=== PATIENT | female | born 1960 | race African-American/Black ===

== ENCOUNTER 2018-07-07 10:53 | Emergency (ER) | payer MEDICARE ==
[~2018-07-07] VITALS: Ht 160 cm; Wt 107.5 kg
[2018-07-07 11:25] VITALS: BP 157/83
[2018-07-07] MEDS ORDERED: cefTRIAXone IM 1 GM VIAL IM ONE (12:00)
[2018-07-07] MEDS ORDERED: AMOX1TAB61 PO (12:27)
[2018-07-07] MEDS ORDERED: GUAI118L20 PO (12:27)
[2018-07-07] MEDS ORDERED: ERYT1OIN6 OP (12:27)
--- NOTE | 2018-07-07 12:28 | PHYS DOC ---
Past Medical History Past Medical History: Anxiety, Bronchitis, Fibromyalgia, GERD Additional Past Medical Histor: SEASONAL ALLERGIES, SEROTONIN LOSS Past Surgical History: Other Additional Past Surgical Histo: L KNEE SX, R HEEL SX Alcohol Use: None Drug Use: None Adult General Chief Complaint Chief Complaint: Congestion HPI HPI Patient is a 58 year old female who presents with complaint of upper respiratory symptoms to include cough, congestion, sinus pain and drainage for the last 4 weeks. Patient indicates that symptoms have been progressively worsening. She indicates that she has purulent nasal drainage and complains of headache associated with this. Patient also indicates that she just noticed that left eye was red in this morning left eye was matted shut. She denies any recent trauma. Patient states that her cough is intermittently productive of lightly tinged yellow sputum. She denies any chest pain or shortness of breath. Review of Systems Review of Systems Constitutional: Positive subjective fever[] Eyes: Left eye demonstrates redness and purulent drainage[] HENT: Complains of sinus congestion along with purulent nasal drainage and sore throat [] Respiratory: Complains of cough without shortness of breath [] Cardiovascular: No additional information not addressed in HPI [] Integument: Denies rash or skin lesions [] Neurologic: Denies headache, focal weakness or sensory changes [] Current Medications Current Medications Current Medications Medications (Trade) Dose Ordered Sig/Sekou Start Time Stop Time Status Last Admin Dose Admin Ceftriaxone Sodium (Rocephin Im) 1 gm 1X ONCE 07/07/18 12:00 07/07/18 12:01 DC 07/07/18 12:14 1 GM Allergies Allergies Allergies Coded Allergies Type Severity Reaction Last Updated Verified No Known Drug Allergies 07/07/18 No Physical Exam Physical Exam Constitutional: Well developed, well nourished, no acute distress, non-toxic appearance. [] HENT: Normocephalic, atraumatic, bilateral external ears normal, oropharynx moist, no oral exudates. Both frontal and maxillary sinuses are tender to palpation and percussion. [] Eyes: PERRLA, EOMI. left eye demonstrates scleral injection with mucosal edema and small amount of purulent drainage. [] Neck: Normal range of motion, no tenderness, supple, no stridor. [] Cardiovascular:Heart rate regular rhythm, no murmur [] Lungs & Thorax: Bilateral breath sounds clear to auscultation [] Extremities: No tenderness, no cyanosis, no clubbing, ROM intact, no edema. [] Current Patient Data Vital Signs Vital Signs Date Time Temp Pulse Resp B/P (MAP) Pulse Ox O2 Delivery O2 Flow Rate FiO2 07/07/18 11:25 98.3 94 18 157/83 (107) 98 Room Air 98.3 EKG EKG [] Radiology/Procedures Radiology/Procedures [] Course & Med Decision Making Course & Med Decision Making Pertinent Labs and Imaging studies reviewed. (See chart for details) [] Dragon Disclaimer Dragon Disclaimer This electronic medical record was generated, in whole or in part, using a voice recognition dictation system. Departure Departure Impression: Primary Impression: Acute sinusitis Additional Impression: Conjunctivitis, left eye Disposition: HOME, SELF-CARE Condition: STABLE Referrals: CAMI CEDILLO (PCP) Patient Instructions: Bacterial Conjunctivitis, Sinusitis Scripts Erythromycin Base (Erythromycin) 1 Gm Oint...g. 0.5 INCH OP TID for 7 Days, #3.5 GM Prov: SE MTZ Jr. DO 07/07/18 Guaifenesin/Codeine Phosphate (CHERATUSSIN AC SYRUP) 118 Ml Liquid 5 ML PO PRN Q6HRS PRN for COUGH, #120 ML Prov: SE MTZ Jr. DO 07/07/18 Amoxicillin/Potassium Clav (AUGMENTIN 875-125 TABLET) 1 Each Tablet 1 TAB PO BID, #28 TAB Prov: SE MTZ Jr. DO 07/07/18 Problem Qualifiers Primary Impression: Acute sinusitis Sinusitis location: pansinusitis Recurrence: non-recurrent Qualified Codes : J01.40 - Acute pansinusitis, unspecified Additional Impression: Conjunctivitis, left eye Conjunctivitis type: acute Acute conjunctivitis type: bacterial Qualified Codes: H10.32 - Unspecified acute conjunctivitis, left eye SE MTZ Jr. DO Jul 07, 2018 12:28
== END 2018-07-07 12:34 | disposition home or self-care (01) ==
LOC: ER 10:53
DX: J01.40 Acute pansinusitis, unspecified (principal); H10.32 Unspecified acute conjunctivitis, left eye; R51 Headache; F41.9 Anxiety disorder, unspecified; K21.9 Gastro-esophageal reflux disease without esophagitis
CPT/HCPCS: 96372; 99283; J0696

== ENCOUNTER → 2019-06-21 | Outpatient (CLI) | payer MEDICARE ==
[~2019-06-21] MED LIST: AMOX1TAB61 PO; ERYT1OIN6 OP; GUAI118L20 PO
--- NOTE | 2019-06-21 16:24 | KCIC ---
MR of the right knee HISTORY: Right knee pain, progressing in recent years. Pain anterior and posterior. TECHNIQUE: Routine multiplanar sequences are obtained. FINDINGS: Degenerative tear of the medial meniscus. Small posteromedial para meniscal cyst. No evidence of lateral meniscal tear. Anterior and posterior cruciate ligaments are intact. Medial collateral ligament is intact. Iliotibial band unremarkable. Fibular collateral ligament, biceps femoris tendon and popliteus tendon are intact. Extensor mechanism is intact. Trace joint fluid. Severe chondromalacia of the patella. Moderate chondral thinning of the medial greater than lateral joint compartments. No acute fracture. No aggressive bone destruction. No significant Farmer's cyst. IMPRESSION: 1. Medial meniscal tear. 2. DJD. Electronically signed by: Jesse Zamarripa MD (06/21/2019 4:21 PM) [id number]
== END | disposition home or self-care (01) ==
LOC: KCIC MRI 12:04
PROVIDERS: ATTEND Orthopaedic Surgery
DX: S83.241A Other tear of medial meniscus, current injury, right knee, initial encounter (principal); M22.41 Chondromalacia patellae, right knee; M17.11 Unilateral primary osteoarthritis, right knee; X58.XXXA Exposure to other specified factors, initial encounter; Y93.89 Activity, other specified; Y92.89 Other specified places as the place of occurrence of the external cause; Y99.8 Other external cause status
CPT/HCPCS: 73721